=== PATIENT | male | born 1960 | race Caucasian/White ===

== ENCOUNTER 2025-05-11 09:38 | Outpatient (CLI) | payer OTHER | END 2025-05-11 09:43 | disposition home or self-care (01) | LOC: SONOGRAMA 09:38 | PROVIDERS: ATTEND Internal Medicine | DX: K21.9 Gastro-esophageal reflux disease without esophagitis (principal); I11.9 Hypertensive heart disease without heart failure; E78.1 Pure hyperglyceridemia; R46.81 Obsessive-compulsive behavior; N40.0 Benign prostatic hyperplasia without lower urinary tract symptoms; K76.0 Fatty (change of) liver, not elsewhere classified; R10.10 Upper abdominal pain, unspecified; E66.3 Overweight ==